=== PATIENT | female | born 1985 | race Caucasian/White ===

== ENCOUNTER 2017-04-17 13:47 | Emergency (ER) ==
[2017-04-17 13:55] VITALS: BP 145/99; TEMP 97; BMI 38.6
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
== END 2017-04-17 16:35 | disposition home or self-care (01) ==
LOC: ED 13:47
DX: S13.9XXA Sprain of joints and ligaments of unspecified parts of neck, initial encounter (principal); R07.89 Other chest pain; R51 Headache; M54.9 Dorsalgia, unspecified; V89.2XXA Person injured in unspecified motor-vehicle accident, traffic, initial encounter
CPT/HCPCS: 99284